=== PATIENT | female | born 1940 | race Caucasian/White ===

== ENCOUNTER 2018-11-13 19:45 | Observation (INO) | payer MEDICARE, OTHER | END 2018-11-15 17:16 | disposition hospice, home (50) | LOC: MEDICAL 19:45 | PROVIDERS: ADMIT Hospitalist | DX: M54.5 Low back pain (principal); I48.0 Paroxysmal atrial fibrillation; I50.9 Heart failure, unspecified; I42.8 Other cardiomyopathies; N17.9 Acute kidney failure, unspecified; E03.9 Hypothyroidism, unspecified; F32.9 Major depressive disorder, single episode, unspecified; R82.90 Unspecified abnormal findings in urine; G89.29 Other chronic pain; I11.0 Hypertensive heart disease with heart failure; I08.1 Rheumatic disorders of both mitral and tricuspid valves; Z95.0 Presence of cardiac pacemaker; Z79.01 Long term (current) use of anticoagulants; Z90.710 Acquired absence of both cervix and uterus; Z87.891 Personal history of nicotine dependence; Z91.013 Allergy to seafood; Z91.048 Other nonmedicinal substance allergy status; Z85.3 Personal history of malignant neoplasm of breast; Z82.5 Family history of asthma and other chronic lower respiratory diseases; Z80.59 Family history of malignant neoplasm of other urinary tract organ; Z80.49 Family history of malignant neoplasm of other genital organs ==

== ENCOUNTER 2018-11-21 06:41 | Outpatient (CLI) | payer MEDICARE, OTHER ==
[~2018-11-21] VITALS: Ht 167.8 cm; Wt 74.4 kg
[2018-11-21] VITALS (8 sets, daily range): BP systolic 131–187; BP diastolic 72–88; PULSE 60–65; TEMP 97.5
[~2018-11-21 06:41] MED LIST: ALDACTONE 25MG25 M1 PO; ASPIRIN E.C. 8181 MG PO; BUPROPION SR100 M1 PO; CALCIUM 1200 W/1 SGL PO; CENTRUM SILVER1 TA1 PO; CLARITIN; CLARITIN REDITA10 MG PO; CORDARONE200 MG/TAB PO; COZAAR100 MG PO; DUTOPROL 12.5 M1 TE2 PO; ELIQUIS 5MG PO; FEMARA PO; FENTANYL TD; FLUOXETINE40 MG PO; FUROSEMIDE80 MG PO; KLOR-CON M1010 MEQ PO; LASIX 40MG TABL40 MG PO; LEVOXYL0.1 MG PO; LIDODERM 5% PATC1 EA TP; LOPRESSOR 225 MG/TAB PO; MELOXICAM15 MG PO; METOPROLOL SR100 MG PO; OXY IR5 MG PO; OXYCODONE10 MG PO; POTASSIUM CL 110 MEQ PO; PROZAC40 MG PO; ROBAXIN 50500 MG/TAB PO; SENOKOT S 50 MG1 TAB PO; TIKOSYN0.25 MG PO; TOPROL XL 25MG25 MG PO; ULTRAM 50MG TAB50 MG PO; ULTRAM50 MG PO; VICODIN 5/300 PO; VITAMIN D31000 IU PO; WELLBUTRIN XL150 MG PO; XARELTO20 MG PO; ZANAFLEX CAPSULE2 MG PO; ZESTRIL 5MG5 MG PO; ZOCOR 10MG10 MG PO
[2018-11-21 08:23] LABS: CALCIUM 9.6 mg/dL (8.4-10.2); CREATININE, serum 1.44 mg/dL (0.52-1.25); POTASSIUM 3.2 mmol/L (3.4-5.0)
[2018-11-21] MEDS ORDERED: FENTANYL 100MCG TD (12:02)
[2018-11-21] MEDS ORDERED: LIDODERM 5% PATC1 EA TP (12:03)
[2018-11-21] MEDS ORDERED: ULTRAM 50MG TAB50 MG PO (12:04)
[2018-11-21] MEDS ORDERED: IBU600 MG PO (12:05)
[2018-11-21] MEDS ORDERED: ASPIRIN E.C. 8181 MG PO (12:07)
[2018-11-21] MEDS ORDERED: IBU800 M1 PO (12:20)
--- NOTE | 2018-11-21 15:10 | NUR ---
ALL MEDICATION GIVEN WITH VERBAL ORDER AND READBACK WITH MD. SEE MERGE FOR ALL ADMIN TIMES. SEE MERGE FOR RASS ASSESSMENTS DURING AND POST PROCEDURE.
--- NOTE | 2018-11-21 15:40 | NUR ---
Pt returned to [facility] 12 per bed s/p vert. Pt resting well, daughter at bedside.
--- NOTE | 2018-11-21 16:30 | NUR ---
Pt to PO intake s n/v. Report to Fartun Gordillo RN who assumed care at this time.
--- NOTE | 2018-11-21 17:51 | NUR ---
Pt escortedout via wheelchair by this nurse.
== END 2018-11-21 17:51 | disposition home or self-care (01) ==
LOC: COL.CAR 06:41
PROVIDERS: Hospitalist
DX: S22.060A Wedge compression fracture of T7-T8 vertebra, initial encounter for closed fracture (principal); Z85.3 Personal history of malignant neoplasm of breast; Z90.710 Acquired absence of both cervix and uterus; Z88.3 Allergy status to other anti-infective agents; Z91.013 Allergy to seafood; Z91.048 Other nonmedicinal substance allergy status; Z87.891 Personal history of nicotine dependence
CPT/HCPCS: A9503; C1713; J2250; J2405; J3010; J7040